=== PATIENT | female | born 1970 | race Caucasian/White ===

== ENCOUNTER 2016-10-18 10:36 | Emergency (ER) | payer OTHER ==
[2016-10-18 10:42] VITALS: BP 119/85
== END 2016-10-18 12:11 | disposition home or self-care (01) ==
LOC: ED 10:36
DX: S39.012A Strain of muscle, fascia and tendon of lower back, initial encounter (principal); X58.XXXA Exposure to other specified factors, initial encounter; Y93.89 Activity, other specified; Y99.8 Other external cause status; Y92.89 Other specified places as the place of occurrence of the external cause
CPT/HCPCS: J1885

== ENCOUNTER 2020-08-26 06:05 | Day surgery (SDC) | payer OTHER ==
[~2020-08-26] VITALS: Ht 160 cm; Wt 64.9 kg
[2020-08-26 06:36] VITALS: BP 135/91
[2020-08-26 12:10] VITALS: BP 126/75
== END 2020-08-26 11:25 | disposition home or self-care (01) ==
LOC: DS 06:05 → OR 07:30 → DS 09:00 → OR 09:00 → DS 11:25
PROVIDERS: ATTEND Surgery
DX: D17.0 Benign lipomatous neoplasm of skin and subcutaneous tissue of head, face and neck (principal)
CPT/HCPCS: J0690; J2175; J2250; J2405; J2704; J3010; J3490; J7120